=== PATIENT | male | born 1950 | race Caucasian/White ===

== ENCOUNTER 2018-08-16 11:13 | Emergency (ER) | payer BC, MEDICARE ==
[2018-08-16 11:39] LABS: #Lymphocytes 1.3 thou/uL (1.20-3.40); #Monocytes 0.5 thou/uL (0.11-0.59); #Neutrophils 2.6 thou/uL (1.40-6.50); %Basophils 0.3 % (0.0-1.0); %Eosinophils 1.1 % (0.0-10.0); %Monocytes 11.7 % (0.0-10.0); %Neutrophils 57.9 % (42.0-75.0); Hemoglobin 11.8 g/dL (14.0-18.0); Mean Corpuscular HGB CONC 32.2 g/dL (32.0-36.0); Mean Corpuscular Hemoglobin 30.5 pg (27.0-31.0); Mean Corpuscular Volume 94.9 fL (78.0-98.0); Mean Platelet Volume 8.2 fL (7.4-10.4); Platelet Count 154 thou/uL (130-400); RBC Distribution Width 13.8 % (11.5-14.5); Red Blood Cell (RBC) Count 3.87 mill/uL (4.70-6.10); White Blood Cell (WBC) Count 4.6 thou/uL (4.8-10.8)
[2018-08-16 12:00] LABS: ALT (SGPT) 13 U/L (8-55); AST (SGOT) 18 U/L (5-34); Albumin 3.4 g/dL (3.4-4.8); Alkaline Phosphatase 98 U/L (40-150); Anion Gap 11 mmol/L (10-20); BUN (Urea Nitrogen) 20 mg/dL (8.4-25.7); Bilirubin, Total 0.5 mg/dL (0.2-1.2); Calc. Creatinine Clearance 0 mL/min (70-130); Calcium 8.3 mg/dL (7.8-10.44); Carbon Dioxide 22 mmol/L (23-31); Chloride 108 mmol/L (98-107); Estimated GFR-MDRD 72; Globulin 3.5 g/dL (2.4-3.5); Glucose 103 mg/dL (80-115); Potassium 3.9 mmol/L (3.5-5.1); Protein, Total 6.9 g/dL (5.8-8.1); Sodium 137 mmol/L (136-145)
[2018-08-16 12:04] LABS: CKMB 2.2 ng/mL (0-6.6); Troponin I Less than 0.010 ng/mL (< 0.028)
--- NOTE | 2018-08-16 12:43 | RAD ---
PORTABLE CHEST 1 VIEW: Date: 08/16/18 Time: 1144 hours HISTORY: Lightheadedness, weakness, nausea, vomiting. FINDINGS: There are changes of median sternotomy. The heart size is borderline. The lungs are well expanded wit hout lobar consolidation, pneumothoraces, tigre pulmonary edema, or pleural effusions. IMPRESSION: No acute process. POS: [facility]
== END 2018-08-16 15:27 | disposition short-term general hospital (02) ==
LOC: EDBD 11:13 → ERS 11:13
DX: R55 Syncope and collapse (principal); R00.1 Bradycardia, unspecified; Z79.82 Long term (current) use of aspirin; Z79.899 Other long term (current) drug therapy
CPT/HCPCS: 36415; 71045; 80053; 82553; 83880; 84484; 85025; 93005

== ENCOUNTER 2022-06-25 06:04 | Day surgery (SDC) | payer BC ==
[2022-06-24 11:38] VITALS: BMI 31.8
[~2022-06-25 06:04] MED LIST: EPINEPHrine 0.3 MG in Ophthalmic Irrigation Solution 500 ML IRR SCH
[2022-06-25] MEDS ORDERED: Cyclopentolate 1% Opth Drop 2 ML BOT ONE (06:34)
[2022-06-25] MEDS ORDERED: Phenylephrine 2.5% Ophth Soln 5 ML BOT ONE (06:34)
[2022-06-25] MEDS ORDERED: Midazolam HCl 2 mg/2 ml Vial ONE (06:40)
[2022-06-25] MEDS ORDERED: fentaNYL Citrate/PF 100 MCG/2 ML SYRINGE ONE (06:40)
[2022-06-25] MEDS ORDERED: PROPOFOL 200 MG/20 ML VIAL ONE (08:17)
[2022-06-25] MEDS ORDERED: Indocyanine Green 25 MG/10 ML VIAL ONE (08:17)
[2022-06-25] MEDS ORDERED: Maxitrol 0.1% Opth Oint 3.5 GM TUBE ONE (08:17)
[2022-06-25] MEDS ORDERED: Bupivacaine 0.75% 10 ML VIAL ONE (08:17)
[2022-06-25] MEDS ORDERED: Lidocaine 1% PF 5 ML VIAL ONE (08:17)
[2022-06-25] MEDS ORDERED: Lidocaine 4% PF 5 ML AMP ONE (08:17)
[2022-06-25] MEDS ORDERED: Triamcinolone 40 MG/ML VIAL ONE (08:17)
[2022-06-25] MEDS ORDERED: CEFAZOLIN 1 GM VIAL ONE (08:17)
== END 2022-06-25 09:40 | disposition home or self-care (01) ==
LOC: SDC 06:04
PROVIDERS: ATTEND Ophthalmology Retina Specialist
PROC: 08NE3ZZ Release Right Retina, Percutaneous Approach (ICD-10-PCS; principal; 2022-06-25)
PROC: 08T43ZZ Resection of Right Vitreous, Percutaneous Approach (ICD-10-PCS; principal; 2022-06-25)
DX: H35.371 Puckering of macula, right eye (principal); Z79.02 Long term (current) use of antithrombotics/antiplatelets; Z79.82 Long term (current) use of aspirin; Z79.890 Hormone replacement therapy; Z79.899 Other long term (current) drug therapy; Z98.41 Cataract extraction status, right eye; Z98.42 Cataract extraction status, left eye; Z96.1 Presence of intraocular lens; Z95.1 Presence of aortocoronary bypass graft
CPT/HCPCS: J0171; J0690; J2250; J2704; J3301; J3490